=== PATIENT | female | born 1995 | race Two or more races ===

== ENCOUNTER 2025-04-17 18:13 | Emergency (ER) | payer OTHER ==
[~2025-04-17] VITALS: Ht 160 cm; Wt 86.2 kg
[2025-04-17 18:34] VITALS: BP 117/81; TEMP 98.1; O2SAT 97
[2025-04-17] MEDS ORDERED: ACETAMINOPHEN 325 MG TABLET ONE (19:01)
[2025-04-17] MEDS: ACETAMINOPHEN 325 MG TABLET PO ONE (19:06)
== END 2025-04-17 19:07 | disposition home or self-care (01) ==
LOC: ER 18:13
DX: S06.0X0A Concussion without loss of consciousness, initial encounter (principal); S00.03XA Contusion of scalp, initial encounter; W22.8XXA Striking against or struck by other objects, initial encounter; Y93.89 Activity, other specified; Y92.89 Other specified places as the place of occurrence of the external cause; Y99.0 Civilian activity done for income or pay